=== PATIENT | male | born 1970 | race Caucasian/White ===

== ENCOUNTER 2019-05-15 10:19 | Emergency (ER) | payer OTHER, SELFPAY ==
--- NOTE | 2019-05-15 10:23 | ED.GENADULT ---
HPI - General Adult General Chief complaint: Upper Respiratory Infection Stated complaint: cough/congestion/sore throat Time Seen by Provider: 05/15/19 10:37 Source: patient Mode of arrival: ambulatory Limitations: no limitations History of Present Illness HPI narrative: 48-year-old male patient presents to the [facility] with complaints of cold symptoms that started about 3 days ago. Patient states that he recently quit smoking about a month ago. Patient states that he does have a history of emphysema and does have an albuterol inhaler at home but has not been using it recently. Patient states he has had a cough and coughing up some yellow sputum, runny nose with yellow discharge. Patient states he has had a little bit of shortness of breath. Patient states he has been feeling warm but has not been taking his temperature at home. Patient states that he did get a flu shot this year. Patient states he has been taking [id number] Benadryl for his symptoms. Related Data Home Medications Medication Instructions Recorded Confirmed albuterol sulfate 90 mcg INHALATION QID 05/15/19 05/15/19 bupropion HCl 150 mg PO DAILY 05/15/19 05/15/19 fluticasone propion-salmeterol ea INHALATION BID 05/15/19 [Advair Diskus] gabapentin 300 mg BID 05/15/19 05/15/19 lisinopril 20 mg DAILY 05/15/19 05/15/19 meloxicam 15 mg DAILY 05/15/19 05/15/19 methocarbamol 750 mg BID 05/15/19 05/15/19 naproxen 500 mg QID 05/15/19 05/15/19 omeprazole 40 mg DAILY 05/15/19 05/15/19 oxybutynin chloride 5 mg QID 05/15/19 05/15/19 tramadol 50 mg DAILY 05/15/19 05/15/19 umeclidinium [Incruse Ellipta] inh INHALATION DAILY 05/15/19 Allergies Allergy/AdvReac Type Severity Reaction Status Date / Time erythromycin base Allergy Severe Anaphylaxis Verified 05/15/19 10:50 Review of Systems Review of Systems: Narrative: CONSTITUTIONAL: Denies fever, chills, or sweats. EYES: Denies visual changes, redness, or discharge. ENT: Positive rhinorrhea, congestion, denies sore throat, or otalgia. CARDIOVASCULAR: Denies chest pain, palpitations, or edema. RESPIRATORY: Positive cough with dyspnea. GASTROINTESTINAL: Denies abdominal pain, nausea, vomiting, or diarrhea. GENITOURINARY: Denies dysuria or hematuria. SKIN: Denies rash or itching. MUSCULOSKELETAL: Denies back pain, joint pain, or myalgia. NEUROLOGIC: Denies headache, numbness, or weakness. PSYCHIATRIC: Denies anxiety or depression. [facility] Social History Social History Gender identity (if verbalized by the patient): Male Comments At the time of my signature I agree with nursing past medical history, surgical, social, and family history. There is no relevant family history pertinent to the presenting complaint. Exam Narrative: Exam Narrative: GENERAL: Well-appearing, well-nourished, and in no acute distress. HEAD: Normocephalic, atraumatic. Slight tenderness noted to frontal maxillary sinuses on palpation EYES: PERRLA and EOMI. ENT: Nares with erythema and edema noted bilaterally, no rhinorrhea or epistaxis. Mucous membranes moist. Posterior pharynx with no erythema, tonsil enlargement, exudates or lesions present. The left ear canal does have some cerebrum noted NECK: Supple. No lymphadenopathy CHEST: Patient sounds slightly coarse to bilateral upper lower lobes. No respiratory distress. Patient able to talk in clear complete sentences. No tripoding noted. HEART: Regular rate and rhythm. No murmur heard. Normal peripheral pulses. ABDOMEN: Soft, nontender, nondistended, normal active bowel sounds. EXTREMITIES: Normal range of motion. No edema. SKIN: Warm, dry, no rash. NEURO: No focal deficits. Alert and oriented x3. Course Reevaluation(s) Reevaluation #1: Reevaluated patient after his DuoNeb was completed. Patient's lung sounds are clear to bilateral upper and lower lobes. Patient states he feels about the same. Discussed with patient that I do believ
[2019-05-15 10:33] VITALS: BP 162/94; PULSE 97; RESP 20; TEMP 37.8; O2SAT 100
[2019-05-15] MEDS: IPRATROPIUM BR 0.02% INH SOLN 0.5 MG/2.5 ML VIAL INHALATION (10:47)
[2019-05-15] MEDS: ALBUTEROL SULFATE NEB 2.5 MG/3 ML INH INHALATION (10:48)
[2019-05-15 11:20] VITALS: PULSE 97; RESP 20; O2SAT 99
== END 2019-05-15 11:17 | disposition home or self-care (01) ==
PROVIDERS: Emergency Provider Nurse Practitioner Family
DX: J06.9 Acute upper respiratory infection, unspecified (principal); I10 Essential (primary) hypertension; J45.909 Unspecified asthma, uncomplicated; K21.9 Gastro-esophageal reflux disease without esophagitis; N40.0 Benign prostatic hyperplasia without lower urinary tract symptoms; Z87.891 Personal history of nicotine dependence; J43.9 Emphysema, unspecified
CPT/HCPCS: 87804; 94640; 99213; G0463

== ENCOUNTER 2019-07-01 09:26 | Outpatient (CLI) | payer OTHER, SELFPAY ==
--- NOTE | ~2019-07-01 | MR_ITS ---
EXAMINATION: MR lumbar spine wo con DATE: 07/01/2019 11:20 INDICATION: Lumbago TECHNIQUE: Magnetic resonance imaging (MRI) of the lumbar spine was performed without intravenous con trast. Sequences included sagittal T2-weighted FSE, sagittal T2-weighted FS FSE, sagittal T1-weighted FSE, and axial T2-weighted FSE. COMPARISON: None FINDINGS: Multilevel retrolisthesis measuring 2 mm L1 on L2, 3 mm L2 on L3, 5 mm L3 on L4 and 3 mm L4 on L5. Mo derate disc height loss at L2-L3 and L3-L4 with anterior degenerative endplate remodeling at both lev els resulting in mild anterior wedging of L2 and L3. There is additional chronic anterior wedging, mi ld at L1 and minimal at T12. There are also small Schmorl's nodes at all of the endplates between the inferior endplates of T11 and L4. No acute fracture or pathologic marrow replacing process. Small T1 hyperintense hemangioma at L2. Severe disc height loss with additional degenerative endplate changes at L5-S1. Mild disc height loss at L4-L5. The conus medullaris terminates at L1-L2. There is normal signal in the caudal spinal cord. Paravertebral soft tissues are unremarkable. The following disc lev els are specifically discussed: T12-L1: Negligible central disc protrusion. There is mild bilateral facet joint osteoarthritis. There is no neural foraminal stenosis. There is no central canal stenosis. L1-L2: Disc is mildly bulging, eccentric to the left. There is mild to moderate bilateral facet joint osteoarthritis. There is mild left neural foraminal stenosis. There is mild central canal stenosis. L2-L3: Disc is bulging. There is mild bilateral facet joint osteoarthritis. There is mild bilateral, left greater than right neural foraminal stenosis. There is mild central canal stenosis. L3-L4: Disc is bulging. There is mild bilateral facet joint osteoarthritis. There is are bilateral, l eft greater than right neural foraminal stenosis. There is mild to moderate central canal stenosis wi th mild narrowing of the left and right lateral recesses. L4-L5: Disc is bulging. There is moderate right and mild to moderate left facet joint osteoarthritis. There is moderate bilateral neural foraminal stenosis. There is mild to moderate central canal steno sis at the level of the disc. There is increased fat in the anterior epidural space posterior to the L5 vertebral body which results in severe stenosis with complete effacement of CSF surrounding the ce ntrally clustered nerve roots. L5-S1: Broad-based disc extrusion with disc material extending cephalad and caudal to the level of th e endplates extending from foraminal zone to foraminal zone. There is mild to moderate bilateral face t joint osteoarthritis. There is moderate to severe bilateral neural foraminal stenosis as well as pe ripheral to the neural foramina between the pedicles and L5 inferior endplate osteophytes. There is s evere central canal stenosis to partially to the disc extrusion as well as the increased epidural fat . IMPRESSION: 1. Severe lumbar spondylosis with moderate to severe bilateral neural foraminal stenosis at multiple levels, greatest at L5-S1 and with severe stenosis beginning at the level of the L5 vertebral body du e primarily to increased epidural fat at this level. Reviewed, dictated and finalized at location A. IMPRESSION: 1. Severe lumbar spondylosis with moderate to severe bilateral neural foraminal stenosis at multiple levels, greatest at L5-S1 and with severe stenosis beginn ing at the level of the L5 vertebral body due primarily to increased epidural f at at this level.
== END 2019-07-01 09:27 | disposition home or self-care (01) ==
DX: M54.5 Low back pain (principal); M47.816 Spondylosis without myelopathy or radiculopathy, lumbar region; M48.061 Spinal stenosis, lumbar region without neurogenic claudication
CPT/HCPCS: 72148